=== PATIENT | female | born 1980 | race American Indian/Alaskan Native ===

== ENCOUNTER 2017-12-03 22:54 | Emergency (ER) | payer MEDICAID, OTHER ==
[2017-12-04] MEDS ORDERED: AUGMENTIN 875 MG PO ONE (02:08)
[2017-12-04] MEDS ORDERED: NORCO 7.5/325 PO ONE (02:12)
[2017-12-04] MEDS ORDERED: NORCO 7.5/325 ONE (02:12)
[2017-12-04] MEDS ORDERED: NACL 0.9% 500 ML IR ONE (02:14)
--- NOTE | 2017-12-04 02:16 | Emergency Department Report ---
ED Animal Bite HPI - General Chief Complaint: Animal Bite Stated Complaint: DOG BITE RIGHT ARM Source: patient Mode of arrival: Ambulatory Limitations: No Limitations - History of Present Illness Initial Comments: 36-year-old -[place] female comes in to the emergency room with a dog bite to her right upper arm to the left upper arm scratch. Patient reports that his her dog about 8 months ago hit below it has not had his vaccines. She reports that she is call animal control and they will be out in the morning to get the dog. Patient reports no past medical history. She currently takes no medications and has no known drug allergies. She rates her pain a 5 out of 10. MD Complaint: animal bite -: This evening Left: Arm (right 4 cm open laceration, left arm deep scratches), Right: Arm Animal: dog Animal Control Notified: Yes Description: household pet Mechanism: bite, scratch Pain Description: sharp, burning, constant Severity scale (0 -10): 5 Context: other (while playing with her kids dog jumped and bit her) Associated Symptoms: erythema. denies: bleeding - Related Data Patient Tetanus UTD: No Previous Rx's Medication Instructions Recorded Last Taken Type Amoxicillin/K Clav Tab [Augmentin 1 each PO BID 10 Days #20 tablet 12/04/17 Unknown Rx 875MG TAB] Ibuprofen [Motrin 800 MG tab] 800 mg PO Q8HR PRN #30 tablet 12/04/17 Unknown Rx Allergies Allergy/AdvReac Type Severity Reaction Status Date / Time No Known Allergies Allergy Unverified 12/04/17 00:12 ED Review of Systems ROS: Stated complaint: DOG BITE RIGHT ARM Other details as noted in HPI Comment: All other systems reviewed and negative Constitutional: denies: chills, fever Skin: other (cut on right arm and scratches on left arm) ED Past Medical Hx - Past Medical History Previous Medical History?: No - Surgical History Past Surgical History?: No - Social History Smoking Status: Former Smoker Substance Use Type: Alcohol, Marijuana - Medications Home Medications: Home Medications Medication Instructions Recorded Confirmed Last Taken Type Amoxicillin/K Clav Tab [Augmentin 1 each PO BID 10 Days #20 tablet 12/04/17 Unknown Rx 875MG TAB] Ibuprofen [Motrin 800 MG tab] 800 mg PO Q8HR PRN #30 tablet 12/04/17 Unknown Rx ED Physical Exam - General Limitations: No Limitations General appearance: alert, in no apparent distress - Head Head exam: Present: atraumatic, normocephalic - Eye Eye exam: Present: normal appearance - Neurological Exam Neurological exam: Present: alert, oriented X3 - Psychiatric Psychiatric exam: Present: normal affect, normal mood - Skin Skin exam: Present: other (5 cm laceration to right posterior arm and scratches to the left posterior arm bleeding is controlled) ED Course Vital Signs 12/04/17 00:07 Temperature 98.3 F Pulse Rate 78 Respiratory 18 Rate Blood Pressure 147/90 O2 Sat by Pulse 100 Oximetry - Laceration /Wound Repair Right Arm Wound's Depth, Shape: into muscle, linear Wound Explored: clean Irrigated w/ Saline (ccs): 45 Betadine Prep?: Yes Wound Repaired With: Steri-strips (3) Sterile Dressing Applied?: Yes Critical care attestation.: If time is entered above; I have spent that time in minutes in the direct care of this critically ill patient, excluding procedure time. ED Disposition Clinical Impression: Dog bite of left upper arm Qualifiers: Encounter type: initial encounter Qualified Code(s): S41.152A - Open bite of left upper arm, initial encounter; W54.0XXA - Bitten by dog, initial encounter Dog bite of right upper arm Qualifiers: Encounter type: initial encounter Qualified Code(s): S41.151A - Open bite of right upper arm, initial encounter; W54.0XXA - Bitten by dog, initial encounter Disposition: DC-01 TO HOME OR SELFCARE Is pt being admited?: No Does the pt Need Aspirin: No Condition: Stable Additional Instructions: Please follow up with animal control and if they feel that you need to be placed on rabies vaccination please return back to the emergency room or he can go to the health department. Prescriptions: Amoxicillin/K Clav Tab [Augmentin 875MG TAB] 1 each PO BID 10 Days #20 tablet Ibuprofen [Motrin 800 MG tab] 800 mg PO Q8HR PRN #30 tablet PRN Reason: Pain Referrals: PRIMARY CARE, [Primary Care Provider] - 3-5 Days [facility] [Outside] - 3-5 Days [facility] - 3-5 Days [facility] [Outside[facility] - [facility] Days Forms: Work/School Release Form(ED)
[2017-12-04] MEDS ORDERED: BOOSTRIX IM ONE (02:19)
[2017-12-04] MEDS ORDERED: NACL 0.9% IR ONE (02:35)
[2017-12-04 02:46] VITALS: BP 137/98
== END 2017-12-04 02:46 | disposition home or self-care (01) ==
LOC: ED 22:54
DX: S41.152A Open bite of left upper arm, initial encounter (principal); S41.151A Open bite of right upper arm, initial encounter; F12.10 Cannabis abuse, uncomplicated; Z87.891 Personal history of nicotine dependence; W54.0XXA Bitten by dog, initial encounter; Y93.89 Activity, other specified; Y92.89 Other specified places as the place of occurrence of the external cause; Y99.8 Other external cause status
CPT/HCPCS: 90471; 90715; 99282

== ENCOUNTER 2020-12-04 07:40 | Emergency (ER) | payer MEDICAID ==
[2020-12-04 08:11] VITALS: BP 165/99
[2020-12-04] MEDS ORDERED: IBUPROFEN 800 MG TAB PO ONE (09:25)
--- NOTE | 2020-12-04 09:30 | Emergency Department Report ---
ED Upper Extremity Inj HPI - General Chief Complaint: Extremity Injury, Upper Stated Complaint: LT ARM PAIN Time Seen by Provider: 12/04/20 09:20 Source: patient Mode of arrival: Ambulatory Limitations: No Limitations - History of Present Illness Initial Comments: Patient states last week she was playfully wrestling with her family and her left shoulder started hurting and has been hurting since. She has decreased range of motion of her left shoulder unable to raise her arm at all the pain is in her left shoulder left humerus. She has been taken Motrin with no relief patient denies any past medical history she is now in no acute distress MD Complaint: Injury to:: left, shoulder -: week(s) (1) Other Extremity Injury: Shoulder: Left Other Injuries: none Improves With: medication Worsens With: movement of extremity Associated Symptoms: denies other symptoms Treatments Prior to Arrival: cold therapy - Related Data Previous Rx's Medication Instructions Recorded Last Taken Type Amoxicillin/K Clav Tab [Augmentin 1 each PO BID 10 Days #20 tablet 12/04/17 Unknown Rx 875MG TAB] Ibuprofen [Motrin 800 MG tab] 800 mg PO Q8HR PRN #30 tablet 12/04/17 Unknown Rx Cyclobenzaprine [Flexeril] 10 mg PO TID PRN #15 tablet 12/04/20 Unknown Rx Ibuprofen [Motrin] 800 mg PO Q8HR PRN #21 tablet 12/04/20 Unknown Rx Allergies Allergy/AdvReac Type Severity Reaction Status Date / Time No Known Allergies Allergy Verified 12/04/20 08:11 ED Review of Systems ROS: Stated complaint: LT ARM PAIN Other details as noted in HPI Comment: All other systems reviewed and negative Constitutional: no symptoms reported Respiratory: no symptoms reported Endocrine: no symptoms reported Musculoskeletal: other (Left shoulder and left upper arm pain and decreased range of motion. Distal pulses are intact moving her fingers) ED Past Medical Hx - Social History Smoking Status: Former Smoker Substance Use Type: Alcohol, Marijuana - Medications Home Medications: Home Medications Medication Instructions Recorded Confirmed Last Taken Type Amoxicillin/K Clav Tab [Augmentin 1 each PO BID 10 Days #20 tablet 12/04/17 Unknown Rx 875MG TAB] Ibuprofen [Motrin 800 MG tab] 800 mg PO Q8HR PRN #30 tablet 12/04/17 Unknown Rx Cyclobenzaprine [Flexeril] 10 mg PO TID PRN #15 tablet 12/04/20 Unknown Rx Ibuprofen [Motrin] 800 mg PO Q8HR PRN #21 tablet 12/04/20 Unknown Rx ED Physical Exam - General Limitations: No Limitations General appearance: alert, in no apparent distress - Head Head exam: Present: atraumatic, normal inspection - Eye Eye exam: Present: normal appearance - ENT ENT exam: Present: normal exam - Neck Neck exam: Present: normal inspection - Respiratory Respiratory exam: Present: normal lung sounds bilaterally - Cardiovascular Cardiovascular Exam: Present: regular rate, normal heart sounds - Extremities Exam Extremities exam: Present: normal inspection (Left arm decreased range of motion she is unable to raise her left arm above her head due to worsening pain distal pulses intact), other ED Course Vital Signs 12/04/20 08:10 Temperature 98.1 F Pulse Rate 89 Blood Pressure 165/99 [Left] O2 Sat by Pulse 100 Oximetry ED Medical Decision Making - Radiology Data Radiology results: report reviewed Left shoulder 3 views INDICATION: Limited movement FINDINGS: Degenerative changes seen in the glenohumeral joint and AC joint. Subtle osteophytes are seen along the distal aspect of the clavicle. IMPRESSION: Glenohumeral and AC degenerative change. Mild inflammation is seen surrounding the distal clavicle and AC joint. Clinical correlation with area of pain. - Medical Decision Making 39-year-old female 1 week ago she was wrestling with her family and she injured her her left shoulder is complaining of ongoing left shoulder and left upper arm pain. X-ray of her shoulder and left humerus shows no dislocation Vicente separation or fracture. Critical care attestation.: If time is entered above; I have spent that time in minutes in the direct care of this critically ill patient, excluding procedure time. ED Disposition Clinical Impression: Pain of left shoulder joint on movement Disposition: DC-01 TO HOME OR SELFCARE Is pt being admited?: No Does the pt Need Aspirin: No Condition: Stable Instructions: Shoulder Pain Prescriptions: Cyclobenzaprine [Flexeril] 10 mg PO TID PRN #15 tablet PRN Reason: Muscle Spasm Ibuprofen [Motrin] 800 mg PO Q8HR PRN #21 tablet PRN Reason: Pain , Severe (7-10) Referrals: PRIMARY CARE, [Primary Care Provider] - 3-5 Days ISMAEL ALMODOVAR MD [Staff Physician] - 3-5 Days Time of Disposition: 11:22
--- NOTE | 2020-12-04 10:10 | XRay Report ---
Left humerus one view INDICATION: Arm pain FINDINGS: No acute fracture. No periosteal reaction. No soft tissue abnormality. Left shoulder 3 views INDICATION: Limited movement FINDINGS: Degenerative changes seen in the glenohumeral joint and AC joint. Subtle osteophytes are se en along the distal aspect of the clavicle. IMPRESSION: Glenohumeral and AC degenerative change. Mild inflammation is seen surrounding the distal clavicle an d AC joint. Clinical correlation with area of pain. Signer Name: Leonard Veliz MD Signed: 12/04/2020 10:06 AM Workstation Name: [email or web address]
== END 2020-12-04 11:38 | disposition home or self-care (01) ==
LOC: ED 07:40
DX: M25.512 Pain in left shoulder (principal); F12.90 Cannabis use, unspecified, uncomplicated; Z79.899 Other long term (current) drug therapy; Z87.891 Personal history of nicotine dependence